=== PATIENT | female | born 2005 | race Two or more races ===

== ENCOUNTER 2023-04-15 08:42 | Observation (INO) | payer MEDICAID ==
[~2023-04-15] VITALS: Ht 152.4 cm; Wt 77.1 kg
== END 2023-04-15 10:07 | disposition home or self-care (01) ==
LOC: LDRP 08:42
PROVIDERS: ADMIT Obstetrics & Gynecology; ATTEND Obstetrics & Gynecology
DX: O62.9 Abnormality of forces of labor, unspecified (principal); O21.2 Late vomiting of pregnancy; O26.893 Other specified pregnancy related conditions, third trimester; R10.9 Unspecified abdominal pain; Z3A.38 38 weeks gestation of pregnancy
CPT/HCPCS: 59025; 81002; 94760; G0378

== ENCOUNTER 2023-04-18 11:14 | Observation (INO) | payer MEDICAID ==
[2023-04-18] MEDS ORDERED: ZOFR4T PO (12:45)
== END 2023-04-18 12:57 | disposition home or self-care (01) ==
LOC: UNDOADMOB 11:14 → LDRP 11:14
PROVIDERS: ADMIT Obstetrics & Gynecology; ATTEND Obstetrics & Gynecology
DX: O62.9 Abnormality of forces of labor, unspecified (principal); O99.323 Drug use complicating pregnancy, third trimester; F12.90 Cannabis use, unspecified, uncomplicated; Z3A.39 39 weeks gestation of pregnancy
CPT/HCPCS: 59025; 81002; G0378

== ENCOUNTER 2023-04-23 16:11 | Observation (INO) | payer MEDICAID ==
[~2023-04-23 16:11] MED LIST: ZOFR4T PO
== END 2023-04-23 17:12 | disposition home or self-care (01) ==
LOC: UNDOADMOB 16:11 → NUR 16:11 → LDRP 16:11
PROVIDERS: ADMIT Obstetrics & Gynecology; ATTEND Obstetrics & Gynecology
DX: O62.9 Abnormality of forces of labor, unspecified (principal); O26.893 Other specified pregnancy related conditions, third trimester; N89.8 Other specified noninflammatory disorders of vagina; Z3A.39 39 weeks gestation of pregnancy
CPT/HCPCS: 59025; 81002; 94760; G0378